=== PATIENT | male | born 1955 | race Caucasian/White ===

== ENCOUNTER → 2018-05-18 | Outpatient (CLI) | payer OTHER ==
--- NOTE | 2018-05-22 09:01 | CT ---
"EXAMINATION TYPE: CT angio neck DATE OF EXAM: 05/18/2018 HISTORY: carotid stenosis COMPARISON: None CT DLP: 984.4 mGycm. Automated Exposure Control for Dose Reduction was Utilized. TECHNIQUE: CTA scan of the neck is performed with IV Contrast, patient injected with 100 mL of Isovu e 370, axial images are obtained, coronal and sagittal reformatted images are reviewed. Three-D recon structed images are created on an independent workstation and reviewed. FINDINGS: Visualized lung apices are clear. Thyroid airways patent submandibular glands visualized or opharynx and nasopharynx symmetric. Intraorbital visualized structures are symmetric There is multilevel hypertrophic and degenerative disc disease with multilevel foraminal encroachment . Canal stenosis not excluded Visualized portion of the aortic arch appears patent. There is standard anatomy of the origin of the great vessels. Visualized subclavian arteries, brachiocephalic artery are patent. Common carotid christina neisha are patent. Right common carotid bifurcation: There is extensive plaque at the level of the carotid bifurcation w ith a greater than 80% severe stenosis of the proximal right ICA. Left common carotid artery bifurcation: There is extensive plaque at the level the carotid bifurcatio n with a greater than 80% stenosis of the proximal left ICA. Intracranial atherosclerotic changes of vertebral arteries are noted. Right vertebral artery is domin ant. IMPRESSION: 1. Severe bilateral atherosclerotic plaque and stenosis involving the carotid bifurcation. Greater th an 80% stenosis noted bilaterally. A Yellow level critical message alert has been initiated for Ray Nuñez DO via the [employer] | Critical Results System on 05/22/2018 8:58 AM. This message alert has been sent to Ray Welch i, DO via the preferences provided by the clinician for the receipt of Radiology Critical Findings. Nestor essage ID [id number]."
== END ==
LOC: RADCTMAIN 17:30
PROVIDERS: ATTEND Surgery
DX: I65.23 Occlusion and stenosis of bilateral carotid arteries (principal); Z88.8 Allergy status to other drugs, medicaments and biological substances
CPT/HCPCS: 70498; Q9967

== ENCOUNTER → 2018-05-29 | Outpatient (CLI) | payer OTHER ==
[2018-05-29 10:38] LABS: Basophils % (A) 1 %; Eosinophils # (A) 0.1 k/uL (0-0.7); Eosinophils % (A) 2 %; HCT 44.8 % (39.0-53.0); HGB 14.9 gm/dL (13.0-17.5); Lymphocytes # (A) 2.2 k/uL (1.0-4.8); Lymphocytes % (A) 42 %; MCH 29.5 pg (25.0-35.0); MCHC 33.3 g/dL (31.0-37.0); MCV 88.6 fL (80.0-100.0); Mean Platelet Volume 6.3; Monocytes # (A) 0.3 k/uL (0-1.0); Monocytes % (A) 6 %; Neutrophils # (A) 2.4 k/uL (1.3-7.7); Neutrophils % (A) 46 %; Platelet Count 221 k/uL (150-450); RBC 5.05 m/uL (4.30-5.90); RDW 13.9 % (11.5-15.5); WBC 5.3 k/uL (3.8-10.6)
[2018-05-29 10:53] LABS: Anion Gap 8 mmol/L; Blood Urea Nitrogen 17 mg/dL (9-20); Carbon Dioxide 23 mmol/L (22-30); Chloride 106 mmol/L (98-107); Potassium 4.5 mmol/L (3.5-5.1); Sodium 137 mmol/L (137-145)
== END ==
LOC: LABWHC1 09:45
PROVIDERS: ATTEND Surgery
DX: Z01.812 Encounter for preprocedural laboratory examination (principal); I65.22 Occlusion and stenosis of left carotid artery
CPT/HCPCS: 36415; 80051; 82565; 84520; 85025

== ENCOUNTER 2018-06-05 08:57 | Inpatient (IN) | payer OTHER ==
[2018-05-31 10:58] VITALS: BMI 31.9
[~2018-06-05 08:57] MED LIST: DEXAMETHASONE SOD PHOSPHATE 10 MG/ML 1 ML VIAL IV ONE; HYDROmorphone 0.5 MG/0.5 ML SYRINGE IVP PRN; LACTATED RINGERS 1,000 ML IV SCH; LIDOCAINE 1% 20 ML VIAL (10MG/ML) FOR IV START INTRADERMA PRN; MIDAZOLAM 2 MG/2 ML VIAL IV PRN; NITROGLYCERIN-D5W PMX 50 MG in DEXTROSE/WATER 1 250ML.BAG IV SCH; ONDANSETRON 4 MG/2 ML VIAL IVP ONE; SCOPOLAMINE 1.5MG/72HR PATCH TRANSDERM ONE; ceFAZolin IN SWFI 2 GM/20 ML SYRINGE IVP ONE
[2018-06-05] MEDS ORDERED: LIDOCAINE 1% INJ 10MG/ML (20 ML MDV) ONE (12:37)
[2018-06-05] MEDS ORDERED: HEPARIN SODIUM,PORCINE 10,000 UNIT/ML 1 ML VIAL ONE (12:37)
[2018-06-05] MEDS ORDERED: GLYCOPYRROLATE 0.2 MG/ML 2 ML VIAL ONE (12:37)
[2018-06-05] MEDS ORDERED: LABETALOL 5 MG/ML VIAL MDV ONE (12:37)
[2018-06-05] MEDS ORDERED: ROCURONIUM BROMIDE 10 MG/ML 10 ML VIAL IV ONE (12:37)
[2018-06-05] MEDS ORDERED: ePHEDrine SULFATE/0.9% NACL/PF 50 MG/5 ML SYRINGE IV ONE (12:37)
[2018-06-05] MEDS ORDERED: MIDAZOLAM 2 MG/2 ML VIAL ONE (12:37)
[2018-06-05] MEDS ORDERED: PHENYLEPHRINE-0.9% NACL SYG 1 MG/10 ML SYRINGE ONE (12:37)
[2018-06-05] MEDS ORDERED: fentaNYL (PF) 50 MCG/ML 2 ML AMP ONE (12:37)
[2018-06-05] MEDS ORDERED: NEOSTIGMINE 1 MG/ML 10 ML VIAL ONE (12:37)
[2018-06-05] MEDS ORDERED: PROPOFOL 10 MG/ML 20 ML VIAL IV ONE (12:37)
[2018-06-05] MEDS ORDERED: LIDOCAINE 1% INJ 10MG/ML (20 ML MDV) SQ ONE (13:16)
[2018-06-05] MEDS ORDERED: LACTATED RINGERS 1,000 ML IV ONE ×2 (13:16)
[2018-06-05] MEDS ORDERED: GELATIN SPONGE,ABSORB (LARGE) 1 EACH SPONGE TOPICAL ONE (13:54)
[2018-06-05] MEDS ORDERED: THROMBIN (BOVINE) 5,000 UNIT VIAL TOPICAL ONE ×2 (13:54)
[2018-06-05] MEDS ORDERED: NITROGLYCERIN SL TABS 0.4 MG TAB SUBLINGUAL PRN (15:03)
[2018-06-05] MEDS ORDERED: ACETAMINOPHEN TAB 325 MG TAB PO PRN (15:04)
[2018-06-05] MEDS ORDERED: MORPHINE SULFATE 2 MG/ML SYRINGE IVP PRN (15:04)
[2018-06-05] MEDS ORDERED: TRIMETHOBENZAMIDE 100 MG/ML 2 ML VIAL IM PRN (15:04)
[2018-06-05] MEDS ORDERED: HYDROcodone/APAP 5-325MG 1 EACH TAB PO PRN (15:04)
[2018-06-05] MEDS ORDERED: BENZOCAINE/MENTHOL LOZENG 1 EACH LOZENGE MUCOUS MEM PRN (15:04)
[2018-06-05] MEDS ORDERED: MAG HYDROX/AL HYDROX/SIMETH 30 ML CUP PO PRN (15:04)
[2018-06-05 16:21] LABS: Glucose,Whole Blood 151 mg/dL (75-99)
[2018-06-05] MEDS: HEPARIN SODIUM,PORCINE 5,000 UNIT/ML 1 ML VIAL SQ SCH ×2 (16:48→23:38)
[2018-06-05] MEDS: LACTATED RINGERS 1,000 ML IV SCH (17:00)
[2018-06-05] MEDS ORDERED: SODIUM CHLORIDE 0.9% 1,000 ML IV ONE (17:10)
[2018-06-05 17:20] LABS: Basophils % (A) 0 %; Eosinophils # (A) 0.1 k/uL (0-0.7); Eosinophils % (A) 2 %; HCT 28.1 % (39.0-53.0); Lymphocytes # (A) 0.6 k/uL (1.0-4.8); Lymphocytes % (A) 11 %; MCH 30.2 pg (25.0-35.0); MCHC 33.6 g/dL (31.0-37.0); MCV 89.7 fL (80.0-100.0); Mean Platelet Volume 6.6; Monocytes # (A) 0.1 k/uL (0-1.0); Monocytes % (A) 1 %; Neutrophils # (A) 4.9 k/uL (1.3-7.7); Neutrophils % (A) 85 %; Platelet Count 157 k/uL (150-450); RBC 3.13 m/uL (4.30-5.90); RDW 14.8 % (11.5-15.5); WBC 5.8 k/uL (3.8-10.6)
[2018-06-05 17:21] LABS: HGB 9.4 gm/dL (13.0-17.5)
[2018-06-05] MEDS ORDERED: DOPamine DRIP 800 MG in WATER FOR INJECTION 1 250ML.BAG IV SCH (17:30)
[2018-06-05 17:34] LABS: ALT 37 U/L (21-72); AST 24 U/L (17-59); Albumin 3.4 g/dL (3.5-5.0); Alkaline Phosphatase 42 U/L (38-126); Anion Gap 8 mmol/L; Blood Urea Nitrogen 16 mg/dL (9-20); Calcium 8.3 mg/dL (8.4-10.2); Carbon Dioxide 22 mmol/L (22-30); Chloride 107 mmol/L (98-107); Glucose 145 mg/dL (74-99); Magnesium 1.5 mg/dL (1.6-2.3); Phosphorus 4.2 mg/dL (2.5-4.5); Potassium 4.1 mmol/L (3.5-5.1); Sodium 137 mmol/L (137-145); Total Bilirubin 0.5 mg/dL (0.2-1.3); Total Protein 6.3 g/dL (6.3-8.2)
[2018-06-05] MEDS ORDERED: Magnesium Replacement Protocol 1 EACH MISC MISCELLANE PRN (18:12)
--- NOTE | 2018-06-05 18:37 | P.CONS ---
History of Present Illness - Reason for Consult Consult date: 06/05/18 Medical management after left carotid endarterectomy Requesting physician: Ray Nuñez - Chief Complaint Medical management - History of Present Illness 62-year-old male with PMH of bilateral carotid stenosis and hyperlipidemia presents for elective left carotid endarterectomy. CTA of the neck from May 2018 shows 80% severe stenosis of the proximal right ICA, 80% stenosis of the proximal left ICA. [facility] has been consulted for medical management after surgery. Patient was seen and examined after surgery. No acute events overnight. Patient complains of sore throat, associated with most recent intubation/extubation. He does complain of some mild swelling on the left side of his tongue. He denies any headache, lower extremity edema, nausea, vomiting, fever, chills, cough, chest pain, shortness of breath, dizziness, palpitations, changes in urination or bowel habits. Patient reports no difficulties swallowing liquids or difficulty breathing. He denies any numbness/weakness/tingling of the extremities. Patient noted to be hypotensive with a SBP in the 90s and heart rate in the 30s. Started on dopamine drip. and son is at bedside. Review of Systems Pertinent positives and negatives as discussed in HPI, a complete review of systems was performed and all other systems are negative. Past Medical History Past Medical History: Cancer, Hearing Disorder / Deafness, Hyperlipidemia, Pneumonia Additional Past Medical History / Comment(s): SKIN CA ON EAR. TINNITUS. LT CAROTID STENOSIS. History of Any Multi-Drug Resistant Organisms: None Reported Past Surgical History: Appendectomy, Orthopedic Surgery Additional Past Surgical History / Comment(s): RT ROTATOR CUFF SURG. Past Anesthesia/Blood Transfusion Reactions: No Reported Reaction Smoking Status: Former smoker - Past Family History Mother Family Medical History: Cancer Additional Family Medical History / Comment(s): SKIN CA Medications and Allergies Home Medications Medication Instructions Recorded Confirmed Type Ascorbic Acid [Vitamin C] 2,000 mg PO DAILY 05/31/18 06/05/18 History Clopidogrel [Plavix] 75 mg PO DAILY 05/31/18 06/05/18 History Ezetimibe [Zetia] 10 mg PO DAILY 05/31/18 06/05/18 History Ht Combination (Herbal) 20 drops PO DAILY 05/31/18 06/05/18 History Niacin 250 mg PO DAILY 05/31/18 06/05/18 History Nitroglycerin Sl Tabs [Nitrostat] 0.4 mg SUBLINGUAL Q5M PRN 05/31/18 06/05/18 History Pro Argi 9 Plus (Supplement) 1 dose PO DAILY 05/31/18 06/05/18 History Ubidecarenone [Co Q-10] 100 mg PO DAILY 05/31/18 06/05/18 History Allergies Allergy/AdvReac Type Severity Reaction Status Date / Time No Known Allergies Allergy Verified 06/05/18 15:20 Physical Exam Vitals: Vital Signs Temp Pulse Pulse Resp BP BP BP 06/05/18 15:40 52 L 16 107/54 06/05/18 15:25 57 L 16 95/50 06/05/18 15:10 55 L 16 114/57 06/05/18 14:59 97.1 F L 61 14 126/66 06/05/18 09:45 98.0 F 54 L 16 130/59 BP Pulse Ox 06/05/18 15:40 110/54 99 06/05/18 15:25 95/52 99 06/05/18 15:10 100 06/05/18 14:59 100 06/05/18 09:45 98 Intake and Output 06/05/18 06/05/18 06/05/18 06:59 14:59 22:59 Intake Total 1900 0 Output Total 330 30 Balance 1570 -30 Intake: IV 1900 0 Output: Urine 280 30 Estimated Blood Loss 50 General: [non toxic], [no distress], [appears at stated age] Derm: [warm], [dry] Head: [atraumatic], [normocephalic], [symmetric], [left IJ] Eyes: [EOMI], [no lid lag], [anicteric sclera] Mouth: [no lip lesion], [mucus membranes moist] Cardiovascular: [S1S2 reg], [bradycardic], [positive DP pulse bilateral] Lungs: [CTA bilateral], [no rhonchi, no rales] , [no accessory muscle use] Abdominal: [soft], [ nontender to palpation], [no guarding], [no appreciable organomegaly] Ext: [no gross muscle atrophy], [no edema], [no contractures] Neuro: [no focal neuro deficits] Psych: [Alert], [oriented], [appropriate affect] Results CBC & Chem 7: 06/05/18 17:10 06/05/18 17:10 Labs: Abnormal Lab Results - Last 24 Hours (Table) 06/05/18 06/05/18 06/05/18 Range/Units 16:09 17:10 17:10 RBC 3.13 L (4.30-5.90) m/uL Hgb 9.4 L D (13.0-17.5) gm/dL Hct 28.1 L (39.0-53.0) % Lymphocytes # 0.6 L (1.0-4.8) k/uL Glucose 145 H (74-99) mg/dL POC Glucose (mg/dL) 151 H (75-99) mg/dL Calcium 8.3 L (8.4-10.2) mg/dL Magnesium 1.5 L (1.6-2.3) mg/dL Albumin 3.4 L (3.5-5.0) g/dL Assessment and Plan Assessment: Assessment and Plan 1. Anemia likely secondary to acute blood loss from surgery 2. Carotid stenosis status post left carotid endarterectomy 3. Hypomagnesemia 4. Hyperlipidemia Hemoglobin 9.4. Likely secondary to acute blood loss from surgery. Plan: Daily CBC. Transfuse if hemoglobin less than 7. CTA of the neck shows 80% stenosis of the left and right internal carotid. Postop day 0 left carotid endarterectomy. Plan: Continue aspirin and Plavix. Continue Zetia and niacin. BP and pulse maintaining on dobutamine drip. D examethasone for swelling postextubation. Pain management with Tylenol, [place], morphine or Dilaudid. Continue lactated Ringer's at 120 mL/h. Trimethobenzamide as needed for nausea or vomiting. Replace and monitor electrolytes. Follow surgery recommendations. Follow MICU/Pulmonology recommendations. Magnesium 1.5. Plan: Replace via IV. Follow up in the AM. Continue Zetia and niacin. Patient admitted post left carotid endarterectomy. Thank you for this consult. Please call with any additional questions.
[2018-06-05] MEDS: MAGNESIUM SULFATE-D5W PMX 1 GM in DEXTROSE/WATER 1 100ML.BAG IVPB SCH ×2 (19:07→20:52)
--- NOTE | 2018-06-05 19:51 | P.CNPUL ---
History of Present Illness Consult date: 06/05/18 Chief complaint: Left carotid endarterectomy History of present illness: 62-year-old male patient with bilateral carotid artery stenosis came in for an elective left carotid endarterectomy. The patient had a 80% stenosis and a proximal right ICA an 80% stenosis in the proximal left ICA. The patient underwent his surgery and the patient was brought into the intensive care unit. Upon arrival to the ICU, his systolic blood pressure was in the mid 70s and his heart rate was sinus and a low 30s. Immediately was given a bolus of IV fluids 1 L of normal saline and following that he was increased to a maintenance of 125 mL an hour. I also added dopamine to support his blood pressure and urine output. His urine output was low and the patient was quite bradycardic. Twelve-lead EKGs to follow. He is free of any chest pain. He is awake and alert. No dizziness. No lightheadedness. No altered mentation. Urine output is improving. He is moving all 4 extremities without any limitation. He is talking and no slurred speech and aphasia. His hemoglobin is at 9.4. Renal function is stable with a creatinine of 0.8. He is on a combination of aspirin 160 mg by mouth daily and Plavix 75 mg by mouth daily. Has hyperlipidemia currently on Zetia Review of Systems Constitutional: Denies chills, Denies fever Eyes: denies as per HPI, denies blurred vision, denies bulging eye, denies decreased vision, denies diplopia, denies discharge, denies dry eye, denies irritation, denies itching, denies pain, denies photophobia, denies loss of peripheral vision, denies loss of vision, denies tunnel vision/blind spots Ears: deny: decreased hearing, ear discharge, earache, tinnitus Ears, nose, mouth and throat: Reports as per HPI Breasts: absent: as per HPI, gynecomastia Cardiovascular: Reports as per HPI Respiratory: Reports as per HPI Gastrointestinal: Reports as per HPI Genitourinary: Reports as per HPI Musculoskeletal: Reports as per HPI Musculoskeletal: absent: ankle pain, ankle stiffness, ankle swelling, as per HPI, elbow pain, elbow stiffness, elbow swelling, foot pain, foot stiffness, foot swelling, hand pain, hand stiffness, hand swelling, hip pain, hip stiffness, hip swelling, knee pain, knee stiffness, knee swelling, shoulder pain , shoulder stiffness, shoulder swelling, wrist pain, wrist stiffness, wrist swelling Integumentary: Reports as per HPI Neurological: Reports as per HPI Psychiatric: Reports as per HPI Endocrine: Reports as per HPI Hematologic/Lymphatic: Reports as per HPI Allergic/Immunologic: Reports as per HPI Past Medical History Past Medical History: Cancer, Hearing Disorder / Deafness, Hyperlipidemia, Pneumonia Additional Past Medical History / Comment(s): Bilateral carotid artery stenosis, hyperlipidemia, skin cancer involving the ear, impaired hearing, osteoarthritis, History of Any Multi-Drug Resistant Organisms: None Reported Past Surgical History: Appendectomy, Orthopedic Surgery Additional Past Surgical History / Comment(s): RT ROTATOR CUFF SURG. Past Anesthesia/Blood Transfusion Reactions: No Reported Reaction Smoking Status: Former smoker - Past Family History Mother Family Medical History: Cancer Additional Family Medical History / Comment(s): SKIN CA Medications and Allergies Home Medications Medication Instructions Recorded Confirmed Type Ascorbic Acid [Vitamin C] 2,000 mg PO DAILY 05/31/18 06/05/18 History Clopidogrel [Plavix] 75 mg PO DAILY 05/31/18 06/05/18 History Ezetimibe [Zetia] 10 mg PO DAILY 05/31/18 06/05/18 History Ht Combination (Herbal) 20 drops PO DAILY 05/31/18 06/05/18 History Niacin 250 mg PO DAILY 05/31/18 06/05/18 History Nitroglycerin Sl Tabs [Nitrostat] 0.4 mg SUBLINGUAL Q5M PRN 05/31/18 06/05/18 History Pro Argi 9 Plus (Supplement) 1 dose PO DAILY 05/31/18 06/05/18 History Ubidecarenone [Co Q-10] 100 mg PO DAILY 05/31/18 06/05/18 History Allergies Allergy/AdvReac Type Severity Reaction Status Date / Time No Known Allergies Allergy Verified 06/05/18 15:20 Physical Exam Vitals: Vital Signs Temp Pulse Pulse Pulse Resp BP BP 06/05/18 18:30 42 L 13 107/61 06/05/18 18:20 38 L 15 107/61 06/05/18 18:10 38 L 19 96/48 06/05/18 18:00 41 L 14 92/53 06/05/18 17:50 41 L 19 87/47 06/05/18 17:40 40 L 15 77/47 06/05/18 17:30 38 L 16 88/42 06/05/18 17:20 40 L 20 88/42 06/05/18 17:10 39 L 14 86/54 06/05/18 17:00 38 L 9 L 88/46 06/05/18 16:50 40 L 8 L 88/46 06/05/18 16:40 40 L 13 87/57 06/05/18 16:30 38 L 14 88/52 06/05/18 16:20 97.8 F 37 L 14 91/51 06/05/18 16:10 41 L 7 L 06/05/18 16:07 56 L 12 06/05/18 15:40 52 L 16 107/54 06/05/18 15:25 57 L 16 95/50 06/05/18 15:10 55 L 16 114/57 06/05/18 14:59 97.1 F L 61 14 06/05/18 09:45 98.0 F 54 L 16 BP BP BP Pulse Ox 06/05/18 18:30 92 L 06/05/18 18:20 92 L 06/05/18 18:10 95 06/05/18 18:00 93 L 06/05/18 17:50 94 L 06/05/18 17:40 94 L 06/05/18 17:30 96 06/05/18 17:20 94 L 06/05/18 17:10 96 06/05/18 17:00 95 06/05/18 16:50 94 L 06/05/18 16:40 94 L 06/05/18 16:30 94 L 06/05/18 16:20 93 L 06/05/18 16:10 92 L 06/05/18 16:07 92 L 06/05/18 15:40 110/54 99 06/05/18 15:25 95/52 99 06/05/18 15:10 100 06/05/18 14:59 126/66 100 06/05/18 09:45 130/59 98 Intake and Output 06/05/18 06/05/18 06/05/18 06:59 14:59 22:59 Intake Total 1900 668.037 Output Total 330 70 Balance 1570 598.037 Intake: IV 1900 0 Intake, IV Titration 368.037 Amount DOPamine DRIP 800 mg In 8.037 Water For Injection 1 250ml.bag @ 5 MCG/KG/MIN 8.93 mls/hr IV .Q24H [facility] Rx#:[id number] Lactated Ringers 1,000 ml 260 @ 120 mls/hr IV .Q8H20M [facility] Rx#:[id number] Sodium Chloride 0.9% 1, 100 000 ml @ 999 mls/hr IV . Q1H1M [facility] Rx#:[id number] Oral 300 Output: Urine 280 70 Estimated Blood Loss 50 Other: Voiding Method Indwelling Catheter ABP, PAP, CO, CI - Last 8 Hours Arterial Blood Pressure 79/58 Arterial Blood Pressure 100/53 Arterial Blood Pressure 204/109 Arterial Blood Pressure 95/51 Arterial Blood Pressure 65/50 Arterial Blood Pressure 67/46 Arterial Blood Pressure 65/53 Arterial Blood Pressure 77/45 Arterial Blood Pressure 73/35 Arterial Blood Pressure 77/39 Arterial Blood Pressure 78/40 Arterial Blood Pressure 81/39 Arterial Blood Pressure 83/39 Arterial Blood Pressure 79/36 Gen. appearance is calm and comfortable no acute distress Head exam was generally normal. There was no scleral icterus or corneal arcus. Mucous membranes were moist. Neck was supple and without jugular venous distension, thyromegaly, or carotid bruits. Carotids were easily palpable bilaterally. There was no adenopathy. Incision over the left carotid area is dry clean and intact and the patient is a KEYUR drain in place, output is minimal at this point and there is no swelling and there is no stridor. Cardiac exam revealed the PMI to be normally situated and sized. The rhythm was regular , but the patient is quite bradycardic, and no extrasystoles were noted during several minutes of auscultation. The first and second heart sounds were normal and physiologic splitting of the second heart sound was noted. There were no murmurs, rubs, clicks, or gallops. Lungs were clear to auscultation and percussion, and with normal diaphragmatic excursion. No wheezes or rales were noted. Abdominal exam revealed normal bowel sounds. The abdomen was soft, non-tender, and without masses, organomegaly, or appreciable enlargement of the abdominal aorta. Examination of the extremities revealed easily palpable radial, femoral and pedal pulses. There was no cyanosis, clubbing or edema. Examination of the skin revealed no evidence of significant rashes, suspicious appearing nevi or other concerning lesions. Neurologically the patient is awake and alert and there is no focal neurological deficits. Results - Laboratory Findings CBC and BMP: 06/05/18 17:10 06/05/18 17:10 Abnormal lab findings: Abnormal Labs 06/05/18 06/05/18 06/05/18 16:09 17:10 17:10 RBC 3.13 L Hgb 9.4 L D Hct 28.1 L Lymphocytes # 0.6 L Glucose 145 H POC Glucose (mg/dL) 151 H Calcium 8.3 L Magnesium 1.5 L Albumin 3.4 L Assessment and Plan Plan: 1 left carotid endarterectomy, postop day #0, 2 bilateral current artery stenosis, more than 80% based on recent CT angiogram of the neck. 3 bradycardia and hypotension with low urine output. Patient has been given IV fluids and the patient is currently on dopamine for hemodynamic support with sub sequent improvement in the blood pressure and urine output 4 sinus bradycardia 5 hyperlipidemia 6 chronic stable anemia Plan Obtain a 12-lead EKG to assess the patient's underlying cardiac rhythm. Based on the monitor tracing the patient is in sinus bradycardia. Continue IV fluids and the patient is currently on LR at the rate of 120 mL an hour. Continue aspirin and Plavix. Dopamine and the dose will be titrated and weaned off based on the blood pressure urine output. Monitor hemoglobin. Monitor renal function. Repeated neurochecks. We'll continue to follow. He'll be kept in ICU for monitoring over the next 24 hours. Heparin subcu for DVT prophylaxis. replace magnesium level.
[2018-06-06 05:10] LABS: Basophils % (A) 0 %; Eosinophils % (A) 0 %; HCT 40.7 % (39.0-53.0); Lymphocytes # (A) 2.1 k/uL (1.0-4.8); Lymphocytes % (A) 16 %; MCHC 34.1 g/dL (31.0-37.0); Mean Platelet Volume 6.8; Monocytes # (A) 0.7 k/uL (0-1.0); Monocytes % (A) 6 %; Neutrophils % (A) 77 %; Platelet Count 272 k/uL (150-450); RBC 4.62 m/uL (4.30-5.90)
[2018-06-06 05:48] LABS: HGB 13.9 gm/dL (13.0-17.5)
[2018-06-06] MEDS: LACTATED RINGERS 1,000 ML IV SCH (06:52)
--- NOTE | 2018-06-06 07:51 | P.OP ---
Date of Procedure: 06/05/18 Preoperative Diagnosis: Asymptomatic left internal carotid artery stenosis Postoperative Diagnosis: Asymptomatic left internal carotid artery stenosis greater than 90% Procedure(s) Performed: Left carotid endarterectomy with patch angioplasty Implants: Bovine pericardial patch Anesthesia: HARRISON Surgeon: Ray Nuñez Estimated Blood Loss (ml): 50 IV fluids (ml): 1,200 Urine output (ml): 280 Pathology: other (Carotid plaque) Condition: stable Disposition: PACU Indications for Procedure: 62-year-old gentleman who presented originally to the office secondary to bilateral internal carotid artery stenosis seen on ultrasound and CAT scan. Patient denies any lateralizing symptoms such as weakness, vision changes or speech issues. When evaluating his ultrasound as well as CT angiogram it was noted to have dense calcific focal stenosis at the bifurcation indicating greater than 80% stenosis. We discussed surgical options including open versus carotid stenting which I do not believe he is a candidate for and therefore he presents today for carotid endarterectomy. Operative Findings: Dense calcific plaque noted at the bifurcation extending into the internal carotid artery. 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 Description of Procedure: After written informed consent was obtained the patient all risks benefits and competitions were described the patient is brought to the operative suite and laid in a beachchair position. The area of the neck was prepped and draped in usual sterile fashion after appropriate anesthetic was performed per the anesthesiologist. Timeout was performed in normal fashion antibiotics were administered prior to incision. An oblique incision with a 10 blade scalpel was then performed on the left neck just anterior to the sternocleidomastoid musculature. This was then extended with electrocautery and deepened to the carotid sheath. Upon dissection there was a facial vein that was encountered this was suture ligated in normal fashion to get access to the carotid sheath. Sheath was then incised and dissection of the common carotid, external carotid and superior thyroid vessels was performed in a meticulous fashion circumferentially. Control was obtained with vessel loops. Upon dissection it was noted that there was a low hanging hypoglossal nerve which required meticulous dissection to maneuver around this to get to the internal carotid artery. There is also dense inflammatory tissue surrounding the bifurcation. After meticulous dissection was carried around the hypoglossal nerve as well as the internal carotid artery circumferentially the internal carotid artery was then controlled with a vessel loop. Patient was administered heparin and followed by serial ACTs for appropriate heparinization. Once this was above 200 proximal distal control was then obtained with vessel clamps and arteriotomy was created at the common carotid extending into the internal carotid artery with 11 blade scalpel and Pott Parada scissors. Stump pressures were obtained demonstrating a systolic pressure greater than 80 with a mean arterial pressure greater than 60 and therefore shunt was not placed. The lumen was extremely narrowed greater than 90% once the artery was opened. Endarterectomy was then performed with a [place] and the plaque was then feathered at the distal endpoint into the internal carotid artery. The area was irrigated and all free debris was removed. A 6 x 1 cm bovine pericardial patch was then chosen to be placed and patch angioplasty was performed with 6-0 Prolene suture in running fashion. Prior to last sutures being placed control was released from the common carotid artery flushing any free debris out of the patch. This was once again clamped and the internal carotid artery was released revealing good blood flow and backbleeding. Once again this was clamped and the external carotid artery was released followed by the common carotid to flush any free debris into the external system followed by the internal carotid artery. Final sutures were then secured. The area was copiously irrigated with antibiotic solution. Hemostasis was ensured with Surgicel. Flow was then assessed with Doppler demonstrating good brisk flow that was nonobstructive. There was a palpable pulse in the internal carotid artery as well. A 10 KEYUR drain was then placed and secured with nylon suture. Once hemostatic the incision was then closed in a multilayer fashion skin was cleansed and dressings were placed. The patient tolerated procedure well was awoken in the operating room was following commands and showed no evidence of focal deficits. He was then sent to PACU for recovery.
--- NOTE | 2018-06-06 08:19 | P.PN ---
Subjective Progress Note Date: 06/06/18 Principal diagnosis: Status post left carotid endarterectomy Patient was seen and examined. No complaints overnight. Patient states he had a slight headache which resolved. He denies any lateralizing symptoms such as weakness, vision changes or speech issues. He did ambulate to and from the bathroom without difficulty. He denies any fevers, chills, chest pain or shortness of breath. Objective - Vital Signs Vital signs: Vital Signs Temp 97.9 F 06/06/18 04:00 Pulse 61 06/06/18 07:30 Resp 23 06/06/18 07:30 BP 102/58 06/06/18 07:30 Pulse Ox 93 L 06/06/18 07:30 Intake & Output 06/05/18 06/06/18 06/06/18 18:59 06:59 18:59 Intake Total 2568.037 1368.963 Output Total 400 2920 Balance 2168.037 -1551.037 Intake: IV 1900 1120 Lactated Ringers 1,000 ml 1020 @ 120 mls/hr IV .Q8H20M [facility] Rx#:[id number] Magnesium Sulfate-D5w Pmx 100 1 gm In Dextrose/Water 1 100ml.bag @ 100 mls/hr IVPB Q1H [facility] Rx#: [id number] Intake, IV Titration 368.037 248.963 Amount DOPamine DRIP 800 mg In 8.037 28.963 Water For Injection 1 250ml.bag @ 5 MCG/KG/MIN 8.93 mls/hr IV .Q24H [facility] Rx#:[id number] Lactated Ringers 1,000 ml 260 120 @ 120 mls/hr IV .Q8H20M [facility] Rx#:[id number] Magnesium Sulfate-D5w Pmx 100 1 gm In Dextrose/Water 1 100ml.bag @ 100 mls/hr IVPB Q1H [facility] Rx#: [id number] Sodium Chloride 0.9% 1, 100 000 ml @ 999 mls/hr IV . Q1H1M ONE Rx#:[id number] Oral 300 Output: Urine 350 2920 Estimated Blood Loss 50 Other: Voiding Method Indwelling Catheter Indwelling Catheter ABP, PAP, CO, CI - Last Documented Arterial Blood Pressure 106/60 - Exam Left neck incision site is clean, dry and intact. Drain is with minimal serosanguineous drainage. No hematoma noted no active bleeding. - Constitutional General appearance: Present: cooperative - EENT Eyes: Present: PERRLA - Respiratory Respiratory: bilateral: CTA - Cardiovascular Rhythm: regular - Psychiatric Psychiatric: Present: A&O x's 3 - Labs CBC & Chem 7: 06/06/18 04:25 06/05/18 17:10 Labs: Abnormal Lab Results - Last 24 Hours (Table) 06/05/18 06/05/18 06/05/18 Range/Units 16:09 17:10 17:10 WBC (3.8-10.6) k/uL RBC 3.13 L (4.30-5.90) m/uL Hgb 9.4 L D (13.0-17.5) gm/dL Hct 28.1 L (39.0-53.0) % Neutrophils # (1.3-7.7) k/uL Lymphocytes # 0.6 L (1.0-4.8) k/uL Glucose 145 H (74-99) mg/dL POC Glucose (mg/dL) 151 H (75-99) mg/dL Calcium 8.3 L (8.4-10.2) mg/dL Magnesium 1.5 L (1.6-2.3) mg/dL Albumin 3.4 L (3.5-5.0) g/dL 06/06/18 Range/Units 04:25 WBC 13.0 H (3.8-10.6) k/uL RBC (4.30-5.90) m/uL Hgb (13.0-17.5) gm/dL Hct (39.0-53.0) % Neutrophils # 10.0 H (1.3-7.7) k/uL Lymphocytes # (1.0-4.8) k/uL Glucose (74-99) mg/dL POC Glucose (mg/dL) (75-99) mg/dL Calcium (8.4-10.2) mg/dL Magnesium (1.6-2.3) mg/dL Albumin (3.5-5.0) g/dL Assessment and Plan Assessment: #1 status post left carotid endarterectomy with patch angioplasty secondary to internal carotid artery stenosis. #2 bilateral internal carotid artery stenosis. #3 anemia from yesterday's lab likely secondary to poor lab value and this morning his hemoglobin is normal #4 bradycardia- improved and hypotension resolved Plan: Increase activity- ambulate in hallway D/C KEYUR drain If medically cleared then ok for d/c home today.
[2018-06-06] MEDS ORDERED: ASCORBIC ACID 500 MG TAB PO SCH (09:00)
[2018-06-06] MEDS ORDERED: EZETIMIBE 10 MG TAB PO SCH (09:00)
[2018-06-06] MEDS ORDERED: [UNRECOGNIZED DRUG - OTHER] PO SCH (09:00)
[2018-06-06] MEDS ORDERED: CLOPIDOGREL 75 MG TAB PO SCH (09:00)
[2018-06-06] MEDS ORDERED: NIACIN TR 250 MG CAPSULE.ER PO SCH (09:00)
[2018-06-06] MEDS ORDERED: [UNRECOGNIZED DRUG - OTHER] PO SCH (09:00)
[2018-06-06] MEDS ORDERED: UBIDECARENONE 60 MG PO SCH (09:00)
[2018-06-06] MEDS ORDERED: ASPIRIN 81 MG PO SCH (09:00)
[2018-06-06] MEDS: HEPARIN SODIUM,PORCINE 5,000 UNIT/ML 1 ML VIAL SQ SCH (09:22)
--- NOTE | 2018-06-06 10:42 | P.PN ---
Subjective Progress Note Date: 06/06/18 Principal diagnosis: Medical management Patient seen and examined. No acute events overnight. Patient reports no symptoms this morning. He denies any chest pain, shortness of breath or palpitations. Able to ambulate the hallways without difficulties. Currently on low dose of dopamine drip at 3 mics per minute to maintain BP. Objective - Vital Signs Vital signs: Vital Signs Temp 98.1 F 06/06/18 08:00 Pulse 50 L 06/06/18 08:30 Resp 13 06/06/18 08:30 BP 115/71 06/06/18 08:30 Pulse Ox 95 06/06/18 08:30 Intake & Output 06/05/18 06/06/18 06/06/18 18:59 06:59 18:59 Intake Total 2568.037 1368.963 161.951 Output Total 400 2920 Balance 2168.037 -1551.037 161.951 Weight 92.8 kg Intake: IV 1900 1120 60 Lactated Ringers 1,000 ml 1020 60 @ 120 mls/hr IV .Q8H20M [facility] Rx#:[id number] Magnesium Sulfate-D5w Pmx 100 1 gm In Dextrose/Water 1 100ml.bag @ 100 mls/hr IVPB Q1H [facility] Rx#: [id number] Intake, IV Titration 368.037 248.963 101.951 Amount DOPamine DRIP 800 mg In 8.037 28.963 101.951 Water For Injection 1 250ml.bag @ 5 MCG/KG/MIN 8.93 mls/hr IV .Q24H [facility] Rx#:[id number] Lactated Ringers 1,000 ml 260 120 @ 120 mls/hr IV .Q8H20M [facility] Rx#:[id number] Magnesium Sulfate-D5w Pmx 100 1 gm In Dextrose/Water 1 100ml.bag @ 100 mls/hr IVPB Q1H [facility] Rx#: [id number] Sodium Chloride 0.9% 1, 100 000 ml @ 999 mls/hr IV . Q1H1M ONE Rx#:[id number] Oral 300 Output: Urine 350 2920 Estimated Blood Loss 50 Other: Voiding Method Indwelling Catheter Indwelling Catheter # Voids 1 ABP, PAP, CO, CI - Last Documented Arterial Blood Pressure 106/60 - Exam General: [non toxic], [no distress], [appears at stated age] Derm: [warm], [dry] Head: [atraumatic], [normocephalic], [symmetric], [left KEYUR] Eyes: [EOMI], [no lid lag], [anicteric sclera] Mouth: [no lip lesion], [mucus membranes moist] Cardiovascular: [S1S2 reg], [bradycardic], [positive DP pulse bilateral] Lungs: [CTA bilateral], [no rhonchi, no rales] , [no accessory muscle use] Abdominal: [soft], [ nontender to palpation], [no guarding], [no appreciable organomegaly] Ext: [no gross muscle atrophy], [no edema], [no contractures] Neuro: [no focal neuro deficits] Psych: [Alert], [oriented], [appropriate affect] - Labs CBC & Chem 7: 06/06/18 04:25 06/05/18 17:10 Labs: Abnormal Lab Results - Last 24 Hours (Table) 06/05/18 06/05/18 06/05/18 Range/Units 16:09 17:10 17:10 WBC (3.8-10.6) k/uL RBC 3.13 L (4.30-5.90) m/uL Hgb 9.4 L D (13.0-17.5) gm/dL Hct 28.1 L (39.0-53.0) % Neutrophils # (1.3-7.7) k/uL Lymphocytes # 0.6 L (1.0-4.8) k/uL Glucose 145 H (74-99) mg/dL POC Glucose (mg/dL) 151 H (75-99) mg/dL Calcium 8.3 L (8.4-10.2) mg/dL Magnesium 1.5 L (1.6-2.3) mg/dL Albumin 3.4 L (3.5-5.0) g/dL 06/06/18 Range/Units 04:25 WBC 13.0 H (3.8-10.6) k/uL RBC (4.30-5.90) m/uL Hgb (13.0-17.5) gm/dL Hct (39.0-53.0) % Neutrophils # 10.0 H (1.3-7.7) k/uL Lymphocytes # (1.0-4.8) k/uL Glucose (74-99) mg/dL POC Glucose (mg/dL) (75-99) mg/dL Calcium (8.4-10.2) mg/dL Magnesium (1.6-2.3) mg/dL Albumin (3.5-5.0) g/dL Assessment and Plan Assessment: Assessment and Plan 1. Anemia likely secondary to acute blood loss from surgery 2. Bradycardia with hypotension 3. Carotid stenosis status post left carotid endarterectomy 4. Hypomagnesemia 5. Hyperlipidemia Hemoglobin 9.4-13.9. Likely lab error. Plan: Daily CBC. Transfuse if hemoglobin less than 7. Heart rate in the 50s to 60s. Patient asymptomatic. SBP is low in the 90s. Plan: Continue lactated Ringer's at 120 mL/h. Attempt to wean dobutamine drip. CTA of the neck shows 80% stenosis of the left and right internal carotid. Postop day 1 left carotid endarterectomy. Plan: Continue aspirin and Plavix. Continue Zetia and niacin. Dexamethasone for swelling postextubation. Pain management with Tylenol, [place], morphine or Dilaudid. Trimethobenzamide as needed for nausea or vomiting. Replace and monitor electrolytes. Follow surgery recommendations. Follow MICU/Pulmonology recommendations. Magnesium 1.5 to within normal limits. Plan: Replace via IV. Follow up in the AM. Continue Zetia and niacin. Patient admitted post left carotid endarterectomy. Attempting to wean dobutamine drip if BP stable. DC planning as per surgery.
[2018-06-06 11:19] LABS: Anion Gap 10 mmol/L; Blood Urea Nitrogen 15 mg/dL (9-20); Calcium 9.4 mg/dL (8.4-10.2); Carbon Dioxide 23 mmol/L (22-30); Chloride 106 mmol/L (98-107); Glucose 123 mg/dL (74-99); Potassium 4.3 mmol/L (3.5-5.1); Sodium 139 mmol/L (137-145)
--- NOTE | 2018-06-06 11:29 | P.PN ---
Subjective Progress Note Date: 06/06/18 Principal diagnosis: Left carotid endarterectomy 62-year-old male patient with bilateral carotid artery stenosis came in for an elective left carotid endarterectomy. The patient had a 80% stenosis and a proximal right ICA an 80% stenosis in the proximal left ICA. The patient u nderwent his surgery and the patient was brought into the intensive care unit. Upon arrival to the ICU, his systolic blood pressure was in the mid 70s and his heart rate was sinus and a low 30s. Immediately was given a bolus of IV fluids 1 L of normal saline and following that he was increased to a maintenance of 125 mL an hour. I also added dopamine to support his blood pressure and urine outp ut. His urine output was low and the patient was quite bradycardic. Twelve- lead EKGs to follow. He is free of any chest pain. He is awake and alert. No dizziness. No lightheadedness. No altered mentation. Urine output is improving. He is moving all 4 extremities without any limitation. He is talking and no slurred speech and aphasia. His hemoglobin is at 9.4. Renal function is stable with a creatinine of 0.8. He is on a combination of aspirin 160 mg by mouth daily and Plavix 75 mg by mouth daily. Has hyperlipidemia currently on Zetia On 06/06/2018 patient seen in follow-up in intensive care unit, he is awake and alert, in no acute distress, remains on dopamine at 5 mics per kilo per minute, we'll decrease it down to 3 mics however per normal saline at a rate of 69 per hour, sinus bradycardia on the monitor, mostly in the 50s. Hemodynamically patient is stable, denies any acute complaints other than the some numbness along the left neck incision and some mild dysphagia with swallowing, he is tolerating liquid diet, no difficulty breathing, lung sounds are clear to ausc ultation. Left neck incision is clean dry and intact, covered with a surgical dressing, trachea is midline, incision is clean dry and soft, no neurological deficits. Neurologically patient is intact, KEYUR drain is in place, with minimal amount of serosanguineous drainage. No acute events overnight, no weakness, vision changes or speech abnormalities. Today's lab work has been reviewed, with blood cell count is 13.0, hemoglobin is 13.9, electrodes and renal profile are within normal limits, patient is nonoliguric. Objective - Vital Signs Vital signs: Vital Signs Temp 98.1 F 06/06/18 08:00 Pulse 50 L 06/06/18 08:30 Resp 13 06/06/18 08:30 BP 115/71 06/06/18 08:30 Pulse Ox 95 06/06/18 08:30 Intake & Output 06/05/18 06/06/18 06/06/18 18:59 06:59 18:59 Intake Total 2568.037 1368.963 161.951 Output Total 400 2920 Balance 2168.037 -1551.037 161.951 Weight 92.8 kg Intake: IV 1900 1120 60 Lactated Ringers 1,000 ml 1020 60 @ 120 mls/hr IV .Q8H20M [facility] Rx#:[id number] Magnesium Sulfate-D5w Pmx 100 1 gm In Dextrose/Water 1 100ml.bag @ 100 mls/hr IVPB Q1H [facility] Rx#: [id number] Intake, IV Titration 368.037 248.963 101.951 Amount DOPamine DRIP 800 mg In 8.037 28.963 101.951 Water For Injection 1 250ml.bag @ 5 MCG/KG/MIN 8.93 mls/hr IV .Q24H [facility] Rx#:[id number] Lactated Ringers 1,000 ml 260 120 @ 120 mls/hr IV .Q8H20M [facility] Rx#:[id number] Magnesium Sulfate-D5w Pmx 100 1 gm In Dextrose/Water 1 100ml.bag @ 100 mls/hr IVPB Q1H [facility] Rx#: [id number] Sodium Chloride 0.9% 1, 100 000 ml @ 999 mls/hr IV . Q1H1M [facility] Rx#:[id number] Oral 300 Output: Urine 350 2920 Estimated Blood Loss 50 Other: Voiding Method Indwelling Catheter Indwelling Catheter # Voids 1 ABP, PAP, CO, CI - Last Documented Arterial Blood Pressure 106/60 - Exam GENERAL EXAM: Alert, pleasant, 62-year-old white male comfortable in no apparent distress. HEAD: Normocephalic/atraumatic. EYES: Normal reaction of pupils, equal size. Conjunctiva pink, sclera white. NOSE: Clear with pink turbinates. THROAT: No erythema or exudates. NECK: No masses, no JVD, no thyroid enlargement, no adenopathy. Left neck incision is clean dry and intact, soft, no evidence of hematoma, trachea is midline, KEYUR drain is in place, with minimal amount of serosanguineous drainage CHEST: No chest wall deformity. Symmetrical expansion. LUNGS: Equal air entry with no crackles, wheeze, rhonchi or dullness. CVS: Regular rate and rhythm, normal S1 and S2, no gallops, no murmurs, no rubs ABDOMEN: Soft, nontender. No hepatosplenomegaly, normal bowel sounds, no guarding or rigidity. EXTREMITIES: No clubbing, no edema, no cyanosis, 2+ pulses and upper and lower extremities. MUSCULOSKELETAL: Muscle strength and tone normal. SPINE: No scoliosis or deformity SKIN: No rashes CENTRAL NERVOUS SYSTEM: Alert and oriented -3. No focal deficits, tone is normal in all 4 extremities. PSYCHIATRIC: Alert and oriented -3. Appropriate affect. Intact judgment and insight. - Labs CBC & Chem 7: 06/06/18 04:25 06/06/18 04:25 Labs: Abnormal Lab Results - Last 24 Hours (Table) 06/05/18 06/05/18 06/05/18 Range/Units 16:09 17:10 17:10 WBC (3.8-10.6) k/uL RBC 3.13 L (4.30-5.90) m/uL Hgb 9.4 L D (13.0-17.5) gm/dL Hct 28.1 L (39.0-53.0) % Neutrophils # (1.3-7.7) k/uL Lymphocytes # 0.6 L (1.0-4.8) k/uL Glucose 145 H (74-99) mg/dL POC Glucose (mg/dL) 151 H (75-99) mg/dL Calcium 8.3 L (8.4-10.2) mg/dL Magnesium 1.5 L (1.6-2.3) mg/dL Albumin 3.4 L (3.5-5.0) g/dL 06/06/18 06/06/18 Range/Units 04:25 04:25 WBC 13.0 H (3.8-10.6) k/uL RBC (4.30-5.90) m/uL Hgb (13.0-17.5) gm/dL Hct (39.0-53.0) % Neutrophils # 10.0 H (1.3-7.7) k/uL Lymphocytes # (1.0-4.8) k/uL Glucose 123 H (74-99) mg/dL POC Glucose (mg/dL) (75-99) mg/dL Calcium (8.4-10.2) mg/dL Magnesium (1.6-2.3) mg/dL Albumin (3.5-5.0) g/dL Assessment and Plan Plan: Assessment: 1 left carotid endarterectomy, postop day #1, 2 bilateral current artery stenosis, more than 80% based on recent CT angiogram of the neck. 3 bradycardia and hypotension with low urine output. Patient has been given IV fluids and the patient is currently on dopamine for hemodynamic support with subsequent improvement in the blood pressure and urine output 4 sinus bradycardia 5 hyperlipidemia 6 chronic stable anemia Plan: Continue close hemodynamic monitoring, no acute events overnight, neurologically intact, vital signs are stable, continue lactated Ringer's at a rate of 120 ML per hour, dopamine is at the 3 mics per kilo per minute. Increase activity as tolerated, M.D. with the patient, encouraged to deep breathe and cough, wean vasopressors. I performed a history & physical examination of the patient and discussed their management with my nurse practitioner, Olamide Kenyon. I reviewed the nurse practitioner's note and agree with the documented findings and plan of care. Lung sounds are positive for clear breath sounds. The findings and the impression was discussed with the patient. I attest to the documentation by the nurse practitioner. Time with Patient: Less than 30
[2018-06-06 12:13] LABS: T4, Free (Free Thyroxine) 1.09 ng/dL (0.78-2.19)
[2018-06-06 16:06] VITALS: RESP 15; TEMP 97.9
[2018-06-06 17:38] VITALS: BP 98/64; PULSE 55
== END 2018-06-06 17:52 | disposition home or self-care (01) | DRG 38 ==
LOC: 2ORMAIN 09:26 → 2SICU 15:17
PROVIDERS: ADMIT Surgery; ATTEND Surgery
PROC: 03UL0KZ Supplement Left Internal Carotid Artery with Nonautologous Tissue Substitute, Open Approach (ICD-10-PCS; 2018-06-05)
PROC: 03CL0ZZ Extirpation of Matter from Left Internal Carotid Artery, Open Approach (ICD-10-PCS; principal; 2018-06-05 11:15)
DX: I65.23 Occlusion and stenosis of bilateral carotid arteries (principal); D62 Acute posthemorrhagic anemia; I95.9 Hypotension, unspecified; E83.42 Hypomagnesemia; E78.5 Hyperlipidemia, unspecified; H91.90 Unspecified hearing loss, unspecified ear; R00.1 Bradycardia, unspecified; M19.90 Unspecified osteoarthritis, unspecified site; Z79.02 Long term (current) use of antithrombotics/antiplatelets; Z79.899 Other long term (current) drug therapy; Z85.828 Personal history of other malignant neoplasm of skin; Z87.01 Personal history of pneumonia (recurrent); Z90.49 Acquired absence of other specified parts of digestive tract; Z87.891 Personal history of nicotine dependence; Z80.8 Family history of malignant neoplasm of other organs or systems; Z82.3 Family history of stroke
CPT/HCPCS: 80048; 80053; 83735; 84100; 84439; 84443; 85025; 86850; 86900; 86901; 88304; 88311

== ENCOUNTER → 2023-01-16 | Outpatient (CLI) | payer MEDICARE, BC | END | disposition home or self-care (01) | LOC: LABWHC1 10:35 | PROVIDERS: ATTEND Psychiatry & Neurology Neurology | DX: G50.0 Trigeminal neuralgia (principal); R29.810 Facial weakness; R20.0 Anesthesia of skin | CPT/HCPCS: 36415; 82164; 86038; 86235; 86618 ==

== ENCOUNTER → 2023-05-16 | Outpatient (CLI) | payer MEDICARE, BC ==
[~2023-05-16] MED LIST changes: -DEXAMETHASONE SOD PHOSPHATE 10 MG/ML 1 ML VIAL IV ONE; -HYDROmorphone 0.5 MG/0.5 ML SYRINGE IVP PRN; -LACTATED RINGERS 1,000 ML IV SCH; -LIDOCAINE 1% 20 ML VIAL (10MG/ML) FOR IV START INTRADERMA PRN; -MIDAZOLAM 2 MG/2 ML VIAL IV PRN; -NITROGLYCERIN-D5W PMX 50 MG in DEXTROSE/WATER 1 250ML.BAG IV SCH; -ONDANSETRON 4 MG/2 ML VIAL IVP ONE; +REGADENOSON 0.4 MG/5 ML SYRINGE IV PRN; -SCOPOLAMINE 1.5MG/72HR PATCH TRANSDERM ONE; -ceFAZolin IN SWFI 2 GM/20 ML SYRINGE IVP ONE
--- NOTE | 2023-05-16 12:19 | NM ---
EXAMINATION TYPE: NM myocardial SPECT single DATE OF EXAM: 05/16/2023 COMPARISON: NONE CLINICAL INDICATION: Male, 67 years old with history of R06.02 SOB; Following administration of 9.4 mCi Tc 99m Sestamibi. Images obtained 45 minutes post injection. FINDINGS: Calculated ejection fraction is 46%. Decreased perfusion cardiac apex on rest imaging. IMPRESSION: Decreased perfusion cardiac apex on rest imaging.
== END | disposition home or self-care (01) ==
LOC: RADNMMAIN 07:51
PROVIDERS: ATTEND Pharmacist
DX: R06.02 Shortness of breath (principal)
CPT/HCPCS: 78451; A9500; J2785